=== PATIENT | male | born 1950 | race Caucasian/White ===

== ENCOUNTER → 2020-12-17 | Outpatient (CLI) | payer MEDICARE, OTHER ==
[~2020-12-17] MED LIST: HUMALOG100 UNITS/ SC; IMDUR PO; LANTUS100 UNITS/ SC; LIPITOR20 MG PO; PLAVIX75 MG PO; TOPAMAX25 MG PO; TOPROL XL50 MG PO; VICTOZA 3-0.6 MG/0.1 SC
== END ==
LOC: RAD 10:52
PROVIDERS: ATTEND Family Medicine
DX: R05 Cough (principal)
CPT/HCPCS: 71046

== ENCOUNTER → 2024-11-04 | Outpatient (REF) | payer MEDICARE, OTHER ==
[~2024-11-04] MED LIST changes: +DIATRIZOATE MEGL/DIATRIZOA SOD 30 ML BTL PO ONE
== END ==
LOC: CT 15:36
PROVIDERS: ATTEND Family Medicine
DX: R10.30 Lower abdominal pain, unspecified (principal)
CPT/HCPCS: 74176; Q9963